=== PATIENT | female | born 1955 | race Caucasian/White ===

== ENCOUNTER 2018-08-06 22:04 | Emergency (ER) | payer OTHER ==
[2018-08-06] MEDS ORDERED: ACETAMINOPHEN 500 MG TAB PO (22:39)
== END 2018-08-06 23:00 | disposition home or self-care (01) ==
LOC: FTE 22:04
DX: M79.602 Pain in left arm (principal); I10 Essential (primary) hypertension; E11.9 Type 2 diabetes mellitus without complications
CPT/HCPCS: 99282; Z7502

== ENCOUNTER 2018-10-08 07:32 | Day surgery (SDC) | payer OTHER ==
[2018-10-08] MEDS: SOD CHLORIDE 0.9% 1,000 ML IV (10:00)
[2018-10-08] MEDS: FENTAnyl 50 MCG/ML VIAL (10:40)
[2018-10-08] MEDS: LIDOCAINE 1% (MDV) 20 ML INJ (10:45)
[2018-10-08] MEDS: MIDAZOLAM 1 MG/ML 2 ML INJ (10:50)
[2018-10-08] MEDS: GELATIN 12MM X 7 MM SPONGE (10:55)
[2018-10-08] MEDS: ONDANSETRON 4 MG INJ (11:06)
== END 2018-10-08 14:15 | disposition home or self-care (01) ==
LOC: SDS 07:32
DX: I12.9 Hypertensive chronic kidney disease with stage 1 through stage 4 chronic kidney disease, or unspecified chronic kidney disease (principal); N26.9 Renal sclerosis, unspecified; E11.22 Type 2 diabetes mellitus with diabetic chronic kidney disease; N18.9 Chronic kidney disease, unspecified
CPT/HCPCS: 50200; 77012; 82962